=== PATIENT | female | born 1990 | race Caucasian/White ===

== ENCOUNTER 2021-12-27 12:38 | Emergency (ER) | payer OTHER ==
[~2021-12-27] VITALS: Ht 167.6 cm; Wt 66.2 kg
[2021-12-27 12:48] VITALS: BP 132/90
--- NOTE | 2021-12-27 12:52 | NUR ---
PACO MIN IN ROOM WITH PATIENT
--- NOTE | 2021-12-27 13:06 | NUR ---
Patient discharged in stable condition with [employer] officers. Written and verbal after care instructions given. Patient and the officers verbalized understanding of instruction.
== END 2021-12-27 13:07 | disposition home or self-care (01) ==
LOC: ER 12:45
DX: S00.83XA Contusion of other part of head, initial encounter (principal); W22.8XXA Striking against or struck by other objects, initial encounter; Y93.89 Activity, other specified; Y92.89 Other specified places as the place of occurrence of the external cause; Y99.8 Other external cause status